=== PATIENT | male | born 1965 | race Hispanic/Latino ===

== ENCOUNTER 2021-08-10 15:47 | Emergency (ER) | payer SELFPAY ==
[~2021-08-10] VITALS: Ht 172.7 cm; Wt 72.6 kg
[2021-08-10 17:35] VITALS: BP 121/81
== END 2021-08-10 17:36 | disposition home or self-care (01) ==
LOC: ER 17:09
DX: R05.9 Cough, unspecified (principal); J06.9 Acute upper respiratory infection, unspecified; Z20.822 Contact with and (suspected) exposure to COVID-19
CPT/HCPCS: 99283; U0002

== ENCOUNTER → 2021-09-22 | Outpatient (CLI) | payer OTHER | LOC: US 13:04 | PROVIDERS: ATTEND Family Medicine | DX: R31.9 Hematuria, unspecified (principal) | CPT/HCPCS: 76770 ==

== ENCOUNTER 2021-12-18 03:55 | Emergency (ER) | payer OTHER ==
[~2021-12-18] VITALS: Ht 172.7 cm; Wt 75.3 kg
[2021-12-18] MEDS: ONDANSETRON HCL INJ 2MG/ML 2ML 2 MG/ML VIAL IV STA ×2 (04:20→04:33)
[2021-12-18] MEDS: KETOROLAC TROMETHAMINE 30 MG/ML VIAL IV STA ×2 (04:20→04:33)
[2021-12-18 04:59] LABS: BASOPHILS # (AUTO) 0.1 (0.0-0.1); BASOPHILS % 0.8 % (0.0-1.0); EOSINOPHILS # (AUTO) 0.4 (0.0-0.4); EOSINOPHILS % 4.6 % (0.0-6.0); HEMATOCRIT 49.2 % (38.2-49.6); HEMOGLOBIN 15.9 g/dL (14.0-18.0); LYMPHOCYTES # (AUTO) 2.5 (1.0-3.2); LYMPHOCYTES % 31.6 % (18.0-39.1); MEAN CORPUSCULAR HEMOGLOBIN 28.2 pg (28-32); MEAN CORPUSCULAR HGB CONC 32.3 g/dL (31-35); MEAN CORPUSCULAR VOLUME 87.4 fL (81-99); MONOCYTES # (AUTO) 0.6 (0.2-0.8); MONOCYTES % 7.7 % (4.4-11.3); NEUTROPHILS # (AUTO) 4.3 (2.1-6.9); NEUTROPHILS % 54.9 % (38.7-80.0); PLATELET COUNT 243 x10e3/uL (140-360); RED BLOOD COUNT 5.63 x10e6/uL (4.3-5.7); RED CELL DISTRIBUTION WIDTH 14.4 % (11.7-14.4)
[2021-12-18 05:27] LABS: ANION GAP 11.8 mmol/L (8-16); CALCIUM 8.9 mg/dL (8.4-10.2); CREATININE, SERUM 0.9 mg/dL (0.72-1.25); POTASSIUM 3.8 mmol/L (3.5-5.1)
[2021-12-18 05:35] LABS: CLARITY,URINE CLEAR (CLEAR); COLOR,URINE YELLOW (YELLOW); KETONES,URINE NEGATIVE (NEGATIVE); LEUKOCYTE ESTERASE ,URINE NEGATIVE (NEGATIVE); NITRITE,URINE NEGATIVE (NEGATIVE); PROTEIN,URINE DIPSTICK NEGATIVE (NEGATIVE); URINE UROBILINOGEN 0.2 mg/dL (0.2 - 1)
[2021-12-18] MEDS ORDERED: IOPAMIDOL 370 MG/ML 100 ML INFUS..BTL INJ ONE (05:46)
[2021-12-18 06:09] LABS: EPITHELIAL CELLS,URINE FEW /LPF; WBC,URINE (MAN) 0-5 /HPF (0-5)
[2021-12-18 06:10] LABS: BACTERIA,URINE FEW /HPF
[2021-12-18] MEDS ORDERED: DICYCLOMINE HCL20 MG PO (06:23)
[2021-12-18 06:43] VITALS: BP 121/84
== END 2021-12-18 06:36 | disposition home or self-care (01) ==
LOC: ER 04:00
DX: R10.31 Right lower quadrant pain (principal); R11.0 Nausea; Z87.442 Personal history of urinary calculi
CPT/HCPCS: 36415; 74177; 80048; 81001; 85025; 99284; J1885; J2405; Q9967